=== PATIENT | female | born 2000 | race Caucasian/White ===

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

== ENCOUNTER 2024-01-29 12:51 | Outpatient (CLI) | payer BC ==
[2024-01-29 13:26] LABS: BASOPHILS % (AUTO) 0.6 % (0-1); EOSINOPHILS # (AUTO) 0.1 X10'3 (0-0.9); EOSINOPHILS % (AUTO) 2.2 % (0-6); HEMATOCRIT 39.1 % (35.0-45.0); HEMOGLOBIN 13.3 g/dl (12.0-16.0); LYMPHOCYTES # (AUTO) 1.8 X10'3 (1.1-4.8); LYMPHOCYTES % (AUTO) 31.8 % (21-51); MEAN CORPUSCULAR HEMOGLOBIN 31.2 PG (27.0-31.0); MEAN CORPUSCULAR VOLUME 91.8 FL (78-98); MEAN PLATELET VOLUME 8.2 FL (7.4-10.4); MONOCYTES # (AUTO) 0.5 X10'3 (0-0.9); MONOCYTES % (AUTO) 8.2 % (2-12); NEUTROPHILS # (AUTO) 3.2 X10'3 (1.8-7.7); NEUTROPHILS % (AUTO) 57.2 % (42-75); PLATELET COUNT 287 X10'3 (140-440); RED BLOOD COUNT 4.26 X10'6 (4.20-5.60); RED CELL DISTRIBUTION WIDTH 12.4 % (11.5-14.5); WHITE BLOOD COUNT 5.5 X10'3 (4.5-11.0)
[2024-01-29 13:41] LABS: ALANINE AMINOTRANSFERASE 17 U/L (12-78); ALKALINE PHOSPHATASE 71 IU/L (46-116); ANION GAP 3 (8-16); ASPARTATE AMINO TRANSFERASE 15 U/L (10-37); BILIRUBIN,TOTAL 0.4 MG/DL (0.1-1.0); BLOOD UREA NITROGEN 16 MG/DL (7-18); BUN/CREATININE RATIO 26.2 (10.0-20.0); CALCIUM 8.5 MG/DL (8.5-10.1); CHLORIDE 103 MMOL/L (99-107); CHOL/HDL RATIO 2.5 (0.00-4.99); CHOLESTEROL 202 MG/DL (0-200); CREATININE 0.61 MG/DL (0.40-0.90); GLUCOSE 105 MG/DL (70-104); HDL CHOLESTEROL 80 MG/DL (35-60); LDL CHOLESTEROL 114 MG/DL (50-100); POTASSIUM 3.9 MMOL/L (3.5-5.1); SODIUM 138 MMOL/L (135-145); TOTAL CARBON DIOXIDE 31.6 MMOL/L (24-32); TOTAL PROTEIN 8.1 G/DL (6.4-8.2); TRIGLYCERIDES 46 MG/DL (20-135); eGFR > 90 ML/MIN
== END 2024-01-29 23:59 | disposition home or self-care (01) ==
LOC: LAB 12:51
PROVIDERS: ATTEND Registered Nurse
DX: Z00.00 Encounter for general adult medical examination without abnormal findings (principal); Z71.89 Other specified counseling
CPT/HCPCS: 36415; 80053; 80061; 85025

== ENCOUNTER 2024-12-15 16:20 | Outpatient (CLI) | payer BC ==
[2024-12-15 17:04] LABS: BASOPHILS % (AUTO) 0.3 % (0-1); EOSINOPHILS # (AUTO) 0.1 X10'3 (0-0.9); EOSINOPHILS % (AUTO) 1.1 % (0-6); HEMATOCRIT 37.3 % (35.0-45.0); HEMOGLOBIN 12.7 g/dl (12.0-16.0); LYMPHOCYTES % (AUTO) 23.8 % (21-51); MEAN CORPUSCULAR HEMOGLOBIN 31.4 PG (27.0-31.0); MEAN CORPUSCULAR HGB CONC 34.1 g/dL (33.0-36.5); MEAN PLATELET VOLUME 8.3 FL (7.4-10.4); MONOCYTES # (AUTO) 0.7 X10'3 (0-0.9); MONOCYTES % (AUTO) 8.9 % (2-12); NEUTROPHILS # (AUTO) 5.5 X10'3 (1.8-7.7); NEUTROPHILS % (AUTO) 65.9 % (42-75); PLATELET COUNT 264 X10'3 (140-440); RED BLOOD COUNT 4.05 X10'6 (4.20-5.60); RED CELL DISTRIBUTION WIDTH 12.5 % (11.5-14.5); WHITE BLOOD COUNT 8.4 X10'3 (4.5-11.0)
[2024-12-15 17:28] LABS: CHOL/HDL RATIO 2.5 (0.00-4.99); CHOLESTEROL 190 MG/DL (0-200); HDL CHOLESTEROL 77 MG/DL (35-60); LDL CHOLESTEROL 97 MG/DL (50-100); THYROID STIMULATING HORMONE 1.41 ulU/ml (0.34-4.50); TRIGLYCERIDES 64 MG/DL (20-135)
[2024-12-15 17:45] LABS: HEMOGLOBIN A1C 5.1 % (4.5-6.2)
== END 2024-12-15 23:59 | disposition home or self-care (01) ==
LOC: RAD 16:20
PROVIDERS: ATTEND Nurse Practitioner Family
DX: Z01.419 Encounter for gynecological examination (general) (routine) without abnormal findings (principal); Z13.1 Encounter for screening for diabetes mellitus; Z13.220 Encounter for screening for lipoid disorders
CPT/HCPCS: 36415; 80061; 83036; 84443; 85025

== ENCOUNTER 2025-03-31 08:14 | Outpatient (CLI) | payer BC ==
--- NOTE | 2025-03-31 09:25 | RADIOLOGY REPORT ---
CLINICAL INFORMATION: 24 years old, Female; CERVICALGIA. TECHNIQUE: Multisequence multiplanar MRI images of the cervical spine were obtained without contrast . COMPARISON: None FINDINGS: Bones: Straightening of the normal cervical lordosis. No significant spondylolisthesis. Vertebral bod y heights are maintained. Posterior elements are intact. No acute fracture. No focal suspicious marro w signal abnormality. Spinal cord: Spinal cord is normal in signal intensity and morphology. Paraspinal soft tissues: Paraspinal and prevertebral soft tissues are unremarkable. Other: Lobulated, septated, T2 hyperintense structure at the posterior aspect of the base of the tong ue and abutting the anterior aspect of the lingual tonsils measuring up to 1.1 x 1.1 x 1.2 cm, possib le thyroglossal duct cyst. Mildly prominent bilateral level 2 and 3 cervical lymph nodes measuring up to 1.7 x 0.8 cm, likely reactive. Cervical disc levels: C2-C3: Disc desiccation. No significant spinal canal or neural foraminal stenosis. C3-C4: Disc desiccation. No significant spinal canal or neural foraminal stenosis. C4-C5: Disc desiccation. Small annular fissure. No significant spinal canal or neural foraminal steno sis. C5-C6: Disc desiccation. No significant spinal canal stenosis. Facet and uncinate hypertrophy with m ild left neural foraminal stenosis. C6-C7: Disc desiccation. No significant spinal canal stenosis. Facet and uncinate hypertrophy with m ild left neural foraminal stenosis. C7-T1: Disc desiccation. No significant spinal canal or neural foraminal stenosis. IMPRESSION: 1. Multilevel disc desiccation with no significant spinal canal stenosis. 2. Mild left neural foraminal stenoses at C5-C6 and C6-C7. 3. Small annular fissure at C4-C5. 4. 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 Correlate with clinical findings. If clinically indicated, MRI soft tissue neck without and with contrast could be obtained to further characterize. 5. Additional findings as described above.
== END 2025-03-31 23:59 | disposition home or self-care (01) ==
LOC: MRI02 08:14
PROVIDERS: ATTEND Chiropractor
DX: M47.812 Spondylosis without myelopathy or radiculopathy, cervical region (principal); M48.02 Spinal stenosis, cervical region; M54.2 Cervicalgia; M53.1 Cervicobrachial syndrome; M99.02 Segmental and somatic dysfunction of thoracic region; M99.01 Segmental and somatic dysfunction of cervical region; M54.6 Pain in thoracic spine; M99.03 Segmental and somatic dysfunction of lumbar region
CPT/HCPCS: 72141